=== PATIENT | female | born 1990 | race Caucasian/White ===

== ENCOUNTER 2022-02-08 18:46 | Outpatient (CLI) | payer MEDICAID, SELFPAY | END 2022-02-08 18:47 | disposition home or self-care (01) | LOC: AMB 02-26 15:06 | PROVIDERS: Visit Provider Family Medicine | DX: R56.9 Unspecified convulsions (principal); S09.90XA Unspecified injury of head, initial encounter; W17.89XA Other fall from one level to another, initial encounter; Y92.9 Unspecified place or not applicable | CPT/HCPCS: A0425; A0427 ==

== ENCOUNTER 2022-02-08 19:29 | Emergency (ER) | payer MEDICAID, SELFPAY ==
[2022-02-08] VITALS (11 sets, daily range): BP systolic 108–120; BP diastolic 57–75; PULSE 66–98; RESP 16–20; TEMP 37.6; O2SAT 98–100; BMI 22.9
[2022-02-08 20:54] LABS: Basophils Percent Auto 0.6 % (0.0-3.0); Eosinophils Percent Auto 0.3 % (0.0-7.0); Hematocrit 35.2 % (33.0-51.0); Hemoglobin* 12.2 gm/dL (12.0-16.0); Immature Granulocytes Abs Auto 0.02 K/uL (0.00-0.30); Lymphocytes Percent Auto 12.4 % (20-44); Mean Corpuscular HGB Conc 35 gm/dL (32-36); Mean Corpuscular Hemoglobin 32 pg (26-34); Mean Corpuscular Volume 92 fL (80-100); Neutrophils Percent Auto 80.5 % (42.0-72.0); Platelet Count* 269 K/uL (140-440); RDW Coefficient of Variation % 12.1 % (11.5-15.5); Red Blood Count 3.83 m/uL (4.00-5.20); White Blood Count* 11.92 K/uL (4.50-11.00)
[2022-02-08] MEDS: 0.9 % SODIUM CHLORIDE 1000 ml 1,000 ML IV ×2 (21:01→22:16)
--- NOTE | 2022-02-08 21:06 | ED_ITS ---
HPI - Seizure General Date Seen: 02/08/22 Chief Complaint: Seizure Stated Complaint: Seizure Time Seen by Provider: 02/08/22 19:50 Source: patient, EMS and other (Here with a friend) Mode of arrival: EMS Limitations: no limitations History of Present Illness HPI Narrative: Patient is a very nice 32-year-old female who presents here by EMS after having with an episode in line at the [facility]. She was in line to get food and drink, as the very hot day, she your eyes rolled back in her heads per her friend, and she fell to the ground striking the back part of her head. She did not have any tonic clonic movements. And were witnesses and bystanders immediately rolled her on her side. She came to almost immediately, her really was not any jerking, there is no post confusion. She remembers laying on the ground, she has never before had a seizure, and denies any previous significant syncopal episodes, she did not drink a lot of fluids today, thinks this might be some of the issue. Denies any alcohol use or drug use. Two weeks ago she did miss her period, and had of vaguely/faintly positive test, and had her normal period. And thinks possibly had a miscarriage. She is brought in by EMS she initially was in cervical spine precautions, but those are off by the time I see her. She is alert and lucid speaking to me normally. complaint: seizure Onset (ago): hour(s) Description of Episode: loss of consciousness Duration of episode: 1 -: minutes(s) Witnessed: Yes - by Bystander Trauma: Yes Seizure History: No Place: [facility] Possible Precipitating Event: none and head injury Associated symptoms: denies other symptoms Treatments prior to arrival: none and cervical collar Related Data Home Medications Medication Instructions Recorded Confirmed No Known Home Medications 02/08/22 02/08/22 Allergies Allergy/AdvReac Type Severity Reaction Status Date / Time No Known Drug Allergies Allergy Verified 02/08/22 19:56 Review of Systems Status of ROS: Reports: 10 or more systems reviewed and unremarkable except as noted in History and below Exam Narrative: Exam Narrative: Patient is in no apparent distress speaking to me normally, oriented x3 with a GCS of 15/15, her pupils equal round reactive to light she tracks normally with absence of nystagmus. Her TMs are normal, oropharynx is normal there is no midfacial tenderness. Her cervical spine shows no tenderness to palpation she moves her cervical spine through full range of motion of flexion extension lateral flexion and rotation. There is some boggy area over the septal region, consistent with a very small hematoma, and some tenderness. There is no bleeding. Chest has good air entry bilaterally easy respirations are noted, heart sounds no clicks murmurs or gallops, no bruising, her abdomen is soft and scaphoid there is no guarding no past splenomegaly, there is no CVA tenderness, she moves all extremities independently and well, find more movements of fingers nose testing are normal, she appears to be right-hand dominant. Proximal and distal muscle strengths are normal. There is no evidence of any tongue laceration, or any incontinence of stool or urine. Const: Vital Signs, click to edit/add: Vital Signs - 24 hr 02/08/22 19:30 02/08/22 19:40 02/08/22 19:50 Temperature Pulse Rate [Pulse Oximeter] 77 79 69 Respiratory Rate 18 18 20 Blood Pressure [Le ft Upper Arm] 115/57 L 119/64 109/65 Pulse Oximetry 100 99 100 02/08/22 19:52 02/08/22 20:00 02/08/22 20:10 Temperature 99.7 F H Pulse Rate [Pulse Oximeter] 83 74 76 Respiratory Rate 20 16 16 Blood Pressure [Le ft Upper Arm] 112/71 113/66 113/63 Pulse Oximetry 100 99 99 02/08/22 20:20 02/08/22 20:30 02/08/22 21:00 Temperature Pulse Rate [Pulse Oximeter] 98 71 69 Respiratory Rate 20 20 20 Blood Pressure [Le ft Upper Arm] 120/75 109/69 108/67 Pulse Oximetry 100 100 100 02/08/22 22:00 02/08/22 22:27 Temperature Pulse Rate [Pulse Oximeter] 66 76 Respiratory Rate 20 20 Blood Pressure [Le ft Upper Arm] 113/61 111/67 Pulse Oximetry 100 98 Documenting provider has reviewed patient's vital signs: yes Common normals: no apparent distress General appearance: cooperative, comfortable and well developed Nutritional appearance: thin Orientation/consciousness: Yes awake, Yes oriented to person, Yes oriented to place and Yes oriented to time Neuro: Sensorium/orientation: awake, oriented to person, oriented to place and oriented to time Course Reevaluation(s) Reevaluation #1: Discussed with the patient and friend, the ultrasound showed a nonviable , she will go on to have a miscarriage, or more unlikely would be absorbing the 8 week fetus. Her friend then became very animated and said she was going to leave as she has passed out before, within the last month, and needs a CT scan. I offered to do a CT scan, but they want to leave AMA, but in the end the friend left, and the patient now agreed to get the CT scan. Patient agreed to have the CT scan, CT scan read by Radiology as showing no acute findings. Time: 23:38 Vital Signs Vital signs: Initial Vital Signs Pulse Rate 77 02/08/22 19:30 Respiratory Rate 18 02/08/22 19:30 Respiratory Effort Spontaneous 02/08/22 19:30 Respiratory Depth Normal 02/08/22 19:30 Respiratory Pattern 02/08/22 19:30 Blood Pressure 115/57 L 02/08/22 19:30 Blood Pressure Mean 76 02/08/22 19:30 Blood Pressure Position Supine 02/08/22 19:30 Pulse Oximetry 100 02/08/22 19:30 Oxygen Delivery Method 02/08/22 19:30 Vital Signs Pulse Rate 77 02/08/22 19:30 Respiratory Rate 18 02/08/22 19:30 Blood Pressure 115/57 L 02/08/22 19:30 Pulse Oximetry 100 02/08/22 19:30 Temperature 99.7 F H 02/08/22 19:52 Pulse Rate 76 02/08/22 22:27 Respiratory Rate 20 02/08/22 22:27 Blood Pressure 111/67 02/08/22 22:27 Pulse Oximetry 98 02/08/22 22:27 MDM - Seizure MDM Narrative Medical decision making narrative: Differential diagnosis include but not limited to epilepsy, drug toxin ingestion, blood sugar abnormalities, cancer, syncope, and electrolyte imbalances. This included life-threatening complications of drug toxin ingestion, cancer, and trauma head injury. I think by the history this is more likely a syncopal episode, but we will do a workup, with the test before we order any imaging. Differential Diagnosis Differential diagnosis: Likely intractable seizure disorder, febrile convulsion, focal seizure, generalized seizure, new onset seizure and epileptic seizure Medical Records Attestation: I reviewed the patient's medical records. Lab Data Labs: Lab Results 02/08/22 02/08/22 02/08/22 Range/Units 20:50 20:50 20:56 WBC 11.92 H (4.50-11.00) K/uL RBC 3.83 L (4.00-5.20) m/uL Hgb 12.2 (12.0-16.0) gm/dL Hct 35.2 (33.0-51.0) % MCV 92 (80-100) fL MCH 32 (26-34) pg MCHC 35 (32-36) gm/dL RDW Coeff of Delta 12.1 (11.5-15.5) % Plt Count 269 (140-440) K/uL Neut % (Auto) 80.5 H (42.0-72.0) % Lymph % (Auto) 12.4 L (20-44) % [place] % (Auto) 6.0 (0.0-11.0) % Eos % (Auto) 0.3 (0.0-7.0) % Baso % (Auto) 0.6 (0.0-3.0) % Neut # (Auto) 9.60 H (1.7-7.0) K/uL Lymph # (Auto) 1.50 (0.90-2.90) K/uL [place] # (Auto) 0.70 (0.00-0.90) K/UL Eos # (Auto) 0.00 (0.00-0.50) K/uL Baso # (Auto) 0.10 (0.00-0.30) K/uL Abs Immat Gran (auto) 0.02 (0.00-0.30) K/uL Sodium 133 L (135-149) mmol/L Potassium 3.7 (3.6-5.1) mmol/L Chloride 105 (96-114) mmol/L Carbon Dioxide 22 (20-32) mmol/L BUN 5 (5-24) mg/dL Creatinine 0.5 (0.5-1.5) mg/dL Estimated Creat Clear 130.12 Estimated GFR 129 ml/min Glucose 84 (60-115) mg/dL Calcium 8.6 (8.4-10.6) mg/dL HCG, Quant 13076.00 mIU/mL SARS-CoV-2 (PCR) Negative SARS-CoV-2 (Negative) Influenza Type A (PCR) Negative PCR FLU A (Negative) Influenza Type B (PCR) Negative PCR FLU B (Negative) RSV (PCR) Negative PCR RSV (Negative) Discharge Plan Discharge Clinical Impression: Incomplete miscarriage, Syncope Head injury Qualifiers: Encounter type: initial encounter Qualified Code(s): S09.90XA - Unspecified injury of head, initial encounter Patient Disposition: Home, Self-Care Condition: Stable Instructions: Syncope (ED), Head Injury (ED) Additional Instructions: He will need to follow-up with your OBGYN, within the next week or 2, for recheck. Nonviable is usually either absorb, and resolve or go on to have a miscarriage, with bleeding cramping. The cramping worsens, or bleeding, the need to be seen in the emergency room, ibuprofen would be your friend. Head CT was negative there is no evidence of bleed, or other issue. If you do still have a headache tomorrow, I recommend Tylenol, and then it will be more of a concussion, which is not seen on CT. You must take steps to limit issues associated with this by quiet rooms, limit phone timer computer time, and also rest. Prescriptions: No Action No Known Home Medications 0RF Follow Up/Referrals: Provider,Not a Local [Primary Care Provider] - Stand Alone Forms: [employer] (Closed) Info Instructions
[2022-02-08 21:10] LABS: Chloride* 105 mmol/L (96-114); Potassium* 3.7 mmol/L (3.6-5.1); Sodium* 133 mmol/L (135-149)
[2022-02-08 21:13] LABS: Blood Urea Nitrogen* 5 mg/dL (5-24); Carbon Dioxide* 22 mmol/L (20-32); Creatinine* 0.5 mg/dL (0.5-1.5); Est. Creatinine Clearance* 130.12; Estimated Glomerular Filt Rate 129 ml/min; Glucose* 84 mg/dL (60-115)
[2022-02-08 21:14] LABS: Calcium* 8.6 mg/dL (8.4-10.6)
--- NOTE | 2022-02-08 21:38 | CRLHL7_ITS ---
For Patients: As a result of the Cures Act, medical imaging exams and procedure reports are released immediately into your electronic medical record. You may view this report before your referring provider. If you have questions, please contact your health care provider. INDICATION: Syncope. Positive test. FINDINGS: Single intrauterine . [place]-rump length 2.1 cm. Small yolk sac. No heart activity. [place]-rump length gestational estimate 8 weeks 5 days. Cervix is closed without funneling. No fluid in the maternal peritoneum. IMPRESSION: No heart tone consistent with demise and incomplete . Dictated by Frederic Gross MD @ 02/08/2022 11:23:17 PM (Electronically Signed)
[2022-02-08 21:40] LABS: PCR FLU A Negative PCR FLU A (Negative); PCR FLU B Negative PCR FLU B (Negative); PCR RSV Negative PCR RSV (Negative)
[2022-02-08 21:43] LABS: SARS PCR* Negative SARS-CoV-2 (Negative)
[2022-02-08 22:00] LABS: Slide Review Reflex No
--- NOTE | 2022-02-08 23:36 | CRLHL7_ITS ---
For Patients: As a result of the Century Cures Act, medical imaging exams and procedure reports are released immediately into your electronic medical record. You may view this report before your referring provider. If you have questions, please contact your health care provider. INDICATION: LOC, hit back of head. CT HEAD WITHOUT CONTRAST TECHNIQUE: Multiple axial CT images were performed through the head without intravenous contrast administration. COMPARISON: No previous studies are currently available for comparison. FINDINGS: No acute intracranial hemorrhage is identified. No extra-axial collections are evident and there is no mass effect or midline shift. Ventricles are normal in size and configuration. Brain parenchyma appears normal with unremarkable pena-white differentiation. Osseous structures are within normal limits and no fractures are seen. Included portions of the paranasal sinuses and mastoid air cells are normally aerated aside from minimal mucosal thickening in the right ethmoid air cells. IMPRESSION: Negative non-contrast head CT. ROHIT KEENAN MD [facility] Please note that all CT scans at this facility use dose modulation, iterative reconstruction, and/or weight-based dosing when appropriate to reduce radiation dose to as low as reasonably achievable. Dictated by: Junior Keenan MD @ 02/09/2022 00:34:51 (Electronically Signed)
== END 2022-02-09 00:58 | disposition home or self-care (01) ==
PROVIDERS: Emergency Provider Family Medicine
DX: R55 Syncope and collapse (principal); O03.4 Incomplete spontaneous abortion without complication
CPT/HCPCS: 36415; 70450; 76817; 80048; 84702; 84703; 85025; 87502; 87634; 87635; 93005; 96360; 96361; 99284; J7030